=== PATIENT | female | born 1960 | race Caucasian/White ===

== ENCOUNTER 2017-11-24 14:58 | Emergency (ER) | payer OTHER ==
[2017-11-24] MEDS ORDERED: TETRACAINE 0.5% HCL 0.6ML DROPPER.BOTTLE OD ONE (15:03)
[2017-11-24] MEDS ORDERED: FLUORESCEIN NA 1 EA STRIP OD ONE (15:03)
[2017-11-24] MEDS ORDERED: FLUORESCEIN NA 1 EA STRIP ONE (15:44)
[2017-11-24] MEDS ORDERED: TETRACAINE 0.5% OPHTH SOLN 2 ML BOTTLE ONE (15:45)
--- NOTE | 2017-11-24 15:54 | PDOC ---
History of Present Illness - General Chief Complaint: Eye Problem Stated Complaint: RT EYE PAIN Time Seen by Provider: 11/24/17 15:02 History Source: Patient Exam Limitations: No Limitations - History of Present Illness Initial Comments: 11/24/17 15:49 CHIEF COMPLAINT: Right eye irritation HISTORY OF PRESENT ILLNESS: 57-year-old female was using a bottle of shampoo when a big glop of shampoo flew up into her right eye. She tried to flush it, but her right eye is feeling very uncomfortable with tearing and irritation. There is no change in vision. There is no hard object or foreign body that got into the eye. However, the shampoo is causing severe irritation. Upon arrival to the ED eyewash procedure was done with the eyewash faucet. REVIEW OF SYSTEMS: No fever or chills No change in vision Patient uses reading glasses No contact lens use Past History - Past Medical History Allergies/Adverse Reactions: Allergies Allergy/AdvReac Type Severity Reaction Status Date / Time iodine Allergy Severe Verified 11/24/17 14:59 Home Medications: Ambulatory Orders Estrogen,Con/M-Progest Acet [Prempro 0.45-1.5 mg Tablet] 1 each PO DAILY Levothyroxine [Synthroid -] 88 mcg PO DAILY 11/24/17 *Physical Exam - Physical Exam Comments: 11/24/17 15:51 GENERAL: The patient is awake, alert, and fully oriented, in no acute distress. HEAD: Normal with no signs of trauma. EYES: Pupils equal, round and reactive to light, extraocular movements intact, sclera anicteric, conjunctiva injected on the right side, clear on the left. Fluorescein and examined is negative. No corneal abrasion. No orbital swelling. No orbital erythema. EXTREMITIES: Normal range of motion, no edema. NEUROLOGICAL: Normal speech, normal gait. PSYCH: Normal mood, normal affect. SKIN: Warm, Dry, normal turgor, no rashes or lesions noted. 11/24/17 15:55 Right eye acuity 20/25 Left eye acuity 20/25 Medical Decision Making - Medical Decision Making 11/24/17 15:53 Patient presents with shampoo to the right eye with severe irritation and tearing. On examination, the lid and lashes are normal. The conjunctiva is injected. The cornea is normal on fluorescein exam. Pupils and extracted movements are normal. Normal red reflex. Eye irrigation was done with the eye faucet upon arrival. Examination shows no eye injury. Impression: Shampoo to the eye with chemical conjunctivitis. No other injuries. *DC/Admit/Observation/Transfer Diagnosis at time of Disposition: Chemical conjunctivitis of right eye - Discharge Dispostion Disposition: HOME Condition at time of disposition: Stable Admit: No - Referrals - Patient Instructions Additional Instructions: Today you were evaluated for eye irritation from shampoo. There is no injury to your cornea. Apply warm compresses to the eye as needed. Take ibuprofen ( Advil) 600 mg every 6 hours for discomfort. You should expect your eye to feel back to normal tomorrow. If there are persistent symptoms, follow-up with Dr. Ling, independent video producer in [place]. Return to the emergency department for any severe or progressive symptoms. - Post Discharge Activity
[2017-11-24 15:56] VITALS: BP 126/83; PULSE 79; TEMP 98.3; BMI 21.7
== END 2017-11-24 16:02 | disposition home or self-care (01) ==
LOC: FER 14:58
DX: H10.211 Acute toxic conjunctivitis, right eye (principal); X58.XXXA Exposure to other specified factors, initial encounter; Y93.89 Activity, other specified; Y92.9 Unspecified place or not applicable
CPT/HCPCS: 99282-25